=== PATIENT | female | born 1960 | race Caucasian/White ===

== ENCOUNTER → 2016-10-22 | Outpatient (CLI) | payer OTHER | LOC: CIMAGING 15:48 | PROVIDERS: ATTEND Internal Medicine Rheumatology | DX: M25.561 Pain in right knee (principal); M79.604 Pain in right leg | CPT/HCPCS: 73551-PO; 73562-PO ==

== ENCOUNTER → 2016-11-19 | Outpatient (CLI) | payer OTHER | LOC: CIMAGING 07:07 | PROVIDERS: ATTEND Internal Medicine | DX: M25.551 Pain in right hip (principal) | CPT/HCPCS: 73502-PO ==

== ENCOUNTER → 2016-11-28 | Outpatient (CLI) | payer OTHER | LOC: CIMAGING 11:43 | PROVIDERS: ATTEND Radiology Diagnostic Radiology | DX: I83.891 Varicose veins of right lower extremity with other complications (principal) | CPT/HCPCS: 93971-PO ==

== ENCOUNTER 2016-12-04 03:03 | Emergency (ER) | payer OTHER ==
[2016-12-04 03:09] VITALS: TEMP 98.4; O2SAT 96
--- NOTE | 2016-12-04 03:55 | CPEKG ---
Heart Rate: 77 RR Interval: 779 P-R Interval: 164 QRSD Interval: 86 QT Interval: 392 QTC Interval: 444 P [place]: 51 QRS [place]: 50 T Wave [place]: 43 EKG Severity - BORDERLINE ECG - EKG Impression: SINUS RHYTHM EKG Impression: BORDERLINE R WAVE PROGRESSION, ANTERIOR LEADS EKG Impression: BORDERLINE T ABNORMALITIES, ANTERIOR LEADS Electronically Signed By: Suleiman Souza 04-Dec-2016 06:24:23
--- NOTE | 2016-12-04 03:55 | CPEKG ---
Heart Rate: 77 RR Interval: 779 P-R Interval: 164 QRSD Interval: 86 QT Interval: 392 QTC Interval: 444 P [place]: 51 QRS [place]: 50 T Wave [place]: 43 EKG Severity - BORDERLINE ECG - EKG Impression: SINUS RHYTHM EKG Impression: BORDERLINE R WAVE PROGRESSION, ANTERIOR LEADS EKG Impression: BORDERLINE T ABNORMALITIES, ANTERIOR LEADS Electronically Signed By: Suleiman Souza 04-Dec-2016 06:24:23
[2016-12-04 03:56] LABS: PLATELET COUNT 189 10^3/uL (150-400)
--- NOTE | 2016-12-04 04:35 | EDPHY ---
H & P Stated Complaint: right arm numbness and right side of face burning Time Seen by Provider: 12/04/16 03:20 HPI/ROS: Chief Complaint: Right shoulder face and neck burning HPI: 56-year-old woman woke this morning with the sensation that her right shoulder neck and face were burning. At worst is about a 4/10. Had some pins and needles sensations earlier but does have gotten better. Patient has a history of some similar burning sensation in her right leg which she has worked up but it overhead that made her upper extremities. Denies numbness numbness or weakness. Has not been dropping anything. Denies any traumatic injuries. No vision or hearing changes. No ringing in her ears. No chest pain shortness of breath. No abdominal pain. No back pain. ROS: 10 point Review of Systems is negative except as noted in the HPI. PMH: Hypertension Social History: No smoking, no alcohol, no recreational drug use Family History: non-contributory Physical Exam: Gen: Awake, Alert, No Distress HEENT: Nose: no rhinorrhea Eyes: PERRLA, EOMI Mouth: Moist mucosa Neck: Supple, no JVD Chest: nontender, lungs clear to auscultation Heart: S1, S2 normal, no murmur Abd: Soft, non-tender, no guarding Back: no CVA tenderness, no midline tenderness Ext: no edema, non-tender Skin: no rash Neuro: CN II-XII intact, Sensation grossly intact, Strength 5/5 in bilateral upper and lower extremities , she is neurologically intact in the radial, median , and ulnar nerve distribution. Sensations intact in all cervical dermatomes bilaterally. She has equal sensation on her face, cheek, behind her ears, her ears, and her neck. 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 sinus rhythm with a rate of 77, normal axis, normal intervals , no acute ST or T-wave changes. Imaging Results: Chest x-ray is negative per my interpretation. Imaging: I viewed and interpreted images myself ED Course/Re-evaluation: 56-year-old woman with burning sensation in her right shoulder and right face and neck. She is completely neurologically intact. She has normal strength and completely normal sensation. She has no reproducible tenderness. ECG is negative. Chest x-ray is negative. Laboratory evaluations are normal. I suspect symptoms secondary to her having compressed a nerve with a peripheral nerve process. No deficits at this time. Will discharge with follow-up as an outpatient, return for worsening. No symptoms suggestive of PE, coronary artery disease, stroke, metabolic disorder, or acute vascular process. - Data Points Laboratory Results: Laboratory Results 12/04/16 03:50 12/04/16 03:50 12/04/16 12/04/16 03:50 03:50 WBC 7.43 10^3/uL 10^3/uL (3.80-9.50) RBC 4.67 10^6/uL 10^6/uL (4.18-5.33) Hgb 13.9 g/dL g/dL (12.6-16.3) Hct 39.2 % % (38.0-47.0) MCV 83.9 fL fL (81.5-99.8) MCH 29.8 pg pg (27.9-34.1) MCHC 35.5 g/dL g/dL (32.4-36.7) RDW 12.8 % % (11.5-15.2) Plt Count 189 10^3/uL 10^3/uL (150-400) MPV 10.0 fL fL (8.7-11.7) Neut % (Auto) 63.7 % % (39.3-74.2) Lymph % (Auto) 26.2 % % (15.0-45.0) [place] % (Auto) 6.3 % % (4.5-13.0) Eos % (Auto) 3.2 % % (0.6-7.6) Baso % (Auto) 0.5 % % (0.3-1.7) Nucleat RBC Rel Count 0.0 % % (0.0-0.2) Absolute Neuts (auto) 4.72 10^3/uL 10^3/uL (1.70-6.50) Absolute Lymphs (auto) 1.95 10^3/uL 10^3/uL (1.00-3.00) Absolute Monos (auto) 0.47 10^3/uL 10^3/uL (0.30-0.80) Absolute Eos (auto) 0.24 10^3/uL 10^3/uL (0.03-0.40) Absolute Basos (auto) 0.04 10^3/uL 10^3/uL (0.02-0.10) Absolute Nucleated RBC 0.00 10^3/uL 10^3/uL (0-0.01) Immature Gran % 0.1 % % (0.0-1.1) Immature Gran # 0.01 10^3/uL 10^3/uL (0.00-0.10) Sodium 141 mEq/L mEq/L (134-144) Potassium 3.6 mEq/L mEq/L (3.5-5.2) Chloride 104 mEq/L mEq/L (97-110) Carbon Dioxide 23 mEq/l mEq/l (22-31) Anion Gap 14 mEq/L mEq/L (8-16) BUN 20 mg/dL mg/dL (7-23) Creatinine 0.8 mg/dL mg/dL (0.6-1.0) Estimated GFR > 60 Glucose 112 mg/dL H mg/dL (70-100) Calcium 9.8 mg/dL mg/dL (8.5-10.4) Troponin I < 0.012 ng/mL ng/mL (0.000-0.034) Departure - Departure Disposition: Home, Routine, Self-Care Clinical Impression: Paresthesia Condition: Good Instructions: Paresthesia (ED) Additional Instructions: Follow up with your primary care physician in 2-3 days for further evaluation. Return to the emergency department for worsening discomfort, numbness, weakness , chest pain, shortness of breath, or any other concerns. Referrals: Valerie Chauhan MD [Primary Care Provider] - As per Instructions
[2016-12-04 04:51] VITALS: BP 132/96; PULSE 81; RESP 18
== END 2016-12-04 04:50 | disposition home or self-care (01) ==
DX: R20.2 Paresthesia of skin (principal); I10 Essential (primary) hypertension

== ENCOUNTER → 2016-12-27 | Outpatient (CLI) | payer OTHER ==
[~2016-12-27] MED LIST: IOPAMIDOL (ISOVUE 370) 100 ML BTL IV ONE
== END ==
LOC: FIMAGING 14:53
PROVIDERS: ATTEND Surgery
DX: I83.91 Asymptomatic varicose veins of right lower extremity (principal)
CPT/HCPCS: Q9967

== ENCOUNTER 2017-03-06 05:36 | Observation (INO) | payer OTHER ==
--- NOTE | 2017-03-05 17:44 | GHP ---
[f rep st] PREOP HISTORY AND PHYSICAL DATE OF ADMISSION: 03/06/2017 HISTORY OF PRESENT ILLNESS: The patient is a 56-year-old female who complains of mid right thigh valerie n, worse at rest and better with walking. Sometimes she wakes up in the morning and feels that her l egs are "." She has to lift her leg up with her arms and massage it before being able to move. She has seen multiple doctors and has had multiple tests, including workup for hip problems and hip r eplacement, for which she was told she does not need, as well as MRI of her spine which she says is n ormal. She has also seen Neurology and had muscle testing. Most recently, she comes to us with a CT angiogram that shows a popliteal vein varix, measuring up to 1.9 x 1.6 cm, about 10 cm above the lev el of the right knee joint. There is no evidence of arterial aneurysm. She has tried gabapentin, amitriptyline, and acupuncture with no relief. She is now here to discuss repair of this popliteal vein varix which may or may not be causing her problems. PAST MEDICAL HISTORY: Includes high blood pressure. PAST SURGICAL HISTORY: Denies. MEDICATIONS: Aspirin, vitamin B12, fish oil, flaxseed oil, glucosamine chondroitin. ALLERGIES: No known drug allergies. SOCIAL HISTORY: Denies tobacco use. 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 She is and has 2 children. FAMILY HISTORY: Includes coronary artery disease. REVIEW OF SYSTEMS: Ten-point review of systems is negative aside from that in the HPI. PHYSICAL EXAMINATION: GENERAL: An alert and oriented 56-year-old female in no acute distress. HEENT : Normocephalic, atraumatic. Mucous membranes moist. No scleral icterus. CARDIAC: Regular rate a nd rhythm. PULMONARY: No work of breathing. Clear to auscultation bilaterally. ABDOMEN: Soft, no ntender. EXTREMITIES: Warm, well perfused. No edema. Good range of motion. No knee pain or insta bility. PSYCH: Normal mood and affect. SKIN: Warm and dry. RESULTS: CT angiogram and hip x-ray images were personally reviewed. Also reviewed reports from lum bar and hip MRIs. PLAN: The patient's pain seems to be neuropathic. Her popliteal varix could be repaired, but it is uncertain that it is causing her symptoms. We also discussed the risk of clotting and potential need for prophylactic blood thinners for some time after surgery. Still, the patient would like to accep t the risks and have surgery for the varix. She has seen many doctors, had many tests, used many med icines, and would like to "start somewhere" and try something. We discussed risks and options again, including postoperative expectations and travel and activity limitations. She understands it may no t relieve her symptoms, and she may have clotting problems, bleeding problems, injuries to surroundin g nerves, chronic swelling, and even ischemia. Again, risks and options discussed, and she requests to proceed. /[id number]/MODL
[2017-03-06] MEDS ORDERED: ceFAZolin 2 GM/SWFI 2 GM/20 ML SYR IVP ONE (06:08)
[2017-03-06] MEDS ORDERED: LR 1,000 ML IV ONE (06:09)
[2017-03-06] MEDS ORDERED: LIDOCAINE 1% 2 ML INJ ID PRN (06:09)
[2017-03-06] MEDS ORDERED: MIDAZOLAM 2 MG/2 ML VIAL IVP ONE (07:04)
--- NOTE | 2017-03-06 07:07 | PDANEPAE ---
ANE History of Present Illness R leg pain s/f R popliteal vein anuerism ANE Past Medical History - Cardiovascular History Hx Hypertension: Yes Hx Arrhythmias: No Hx Chest Pain: No Hx Coronary Artery / Peripheral Vascular Disease: No Hx CHF / Valvular Disease: No Hx Palpitations: No Cardiovascular History Comment: pcp monitors bp meds - Pulmonary History Hx COPD: No Hx Asthma/Reactive Airway Disease: No Hx Recent Upper Respiratory Infection: No Hx Oxygen in Use at Home: No Hx Sleep Apnea: No Sleep Apnea Screening Result - Last Documented: Negative - Neurologic History Hx Cerebrovascular Accident: No Hx Seizures: No Hx Dementia: No - Endocrine History Hx Diabetes: No - Renal History Hx Renal Disorders: No - Liver History Hx Hepatic Disorders: No - Neurological & Psychiatric Hx Hx Neurological and Psychiatric Disorders: No - Cancer History Hx Cancer: No - Congenital Disorder History Hx Congenital Disorders: No - GI History Hx Gastrointestinal Disorders: No - Other Health History Other Health History: wears glasses - Chronic Pain History Chronic Pain: No - Surgical History Prior Surgeries: left hand surgery. cyst removed from right hand ANE Review of Systems Review of Systems: - Exercise capacity METS (RN): 4 METS ANE Patient History - Allergies Allergies/Adverse Reactions: No Known Allergies Allergy (Verified 03/06/17 06:16) - Home Medications Home medications: home medication list seen and reviewed (also ASA daily) Home Medications: Amitriptyline HCl [Elavil 50 mg (*)] 25 mg PO HS 04/27/13 [Last Taken 03/02/17] Herbals/Supplements -Info Only 1 ea PO DAILY 03/04/17 [Last Taken 03/04/17] Ibuprofen [Motrin (*)] 400 mg PO BID 03/04/17 [Last Taken 03/03/17] Lisinopril/Hctz 10/12.5 mg [Zestoretic/Prinzide 10/12.5MG (*)] 1 ea PO DAILY [Last Taken 03/05/17 08:00] [place]-3 Fatty Acids [Fish Oil 1000 mg (*)] 1,000 mg PO DAILY 03/04/17 [Last Taken 03/04/17] - NPO status NPO Status: no food or drink >8 hours NPO Since - Liquids (Date): 03/05/17 NPO Since - Liquids (Time): 21:00 NPO Since - Solids (Date): 03/05/17 NPO Since - Solids (Time): 18:30 - Anes Hx Anes Hx: no prior problems - Smoking Hx Smoking Status: Never smoked - Alcohol Use Alcohol Use: Rarely - Family Anes Hx Family Anes Hx: none Family Hx Anesthesia Complications: none ANE Labs/Vital Signs - Labs - CBC WBC: reivewed and okay - Vital Signs Blood Pressure: 125/81 Heart Rate: 96 Respiratory Rate: 16 O2 Sat (%): 96 Height: 154.94 cm Weight: 58.513 kg ANE Physical Exam - Airway Neck exam: FROM - Pulmonary Pulmonary: no respiratory distress - Cardiovascular Cardiovascular: regular rate and rhythym - ASA Status ASA Status: II ANE Anesthesia Plan Anesthesia Plan: general endotracheal anesthesia, GA w LMA (LMA vs ETT based on postion)
[2017-03-06] MEDS ORDERED: IOTHALAMATE MEG (CONRAY) 50 ML VIAL IV ONE (07:25)
[2017-03-06] MEDS ORDERED: PAPAVERINE HCL 60 MG/2 ML SDV ONE (07:25)
[2017-03-06] MEDS ORDERED: BUPIVACAINE 0.5% 30 ML SDV ONE (07:25)
[2017-03-06] MEDS ORDERED: PROPOFOL/EMULSION 500 MG/50 ML BOTTLE IV ONE (07:26)
[2017-03-06] MEDS ORDERED: fentaNYL 100 MCG/2 ML INJ ONE (07:26)
[2017-03-06] MEDS ORDERED: DEXAMETHASONE 4 MG/ML VIAL ONE (07:27)
[2017-03-06] MEDS ORDERED: LIDOCAINE 2% 100 MG/5 ML SYR ONE (07:27)
[2017-03-06] MEDS ORDERED: ONDANSETRON 4 MG/2 ML VIAL ONE (07:27)
--- NOTE | 2017-03-06 07:35 | PDHPUP ---
History & Physical Update H&P update statement: This history and physical update is based on an assessment of the patient which was completed after admission or registration (within 24 hours), but prior to the surgery/procedure.
[2017-03-06] MEDS ORDERED: PHENYLEPHRINE HCL 100 MCG/ML SYR ONE (07:42)
[2017-03-06] MEDS ORDERED: HEPARIN 10,000 UNIT/10 ML MDV (1,000 UNIT/ML) ONE (07:56)
[2017-03-06] MEDS ORDERED: THROMBIN (BOVINE) 5,000 UNIT VIAL TP ONE (08:32)
[2017-03-06] MEDS ORDERED: HYDROmorphONE/DILAUDID 1 MG/ML INJ IVP PRN (08:47)
[2017-03-06] MEDS ORDERED: fentaNYL 100 MCG/2 ML INJ IVP PRN (08:47)
[2017-03-06] MEDS ORDERED: DEXAMETHASONE 4 MG/ML VIAL IVP PRN (08:47)
[2017-03-06] MEDS ORDERED: LR 500 ML IV PRN (08:47)
[2017-03-06] MEDS ORDERED: LABETALOL HCL 5 MG/ML 20 ML MDV IVP PRN (08:47)
[2017-03-06] MEDS ORDERED: NALOXONE HCL 0.4 MG/ML INJ IVP PRN (08:47)
[2017-03-06] MEDS ORDERED: PROMETHAZINE HCL 25 MG/ML INJ IVP PRN (08:47)
[2017-03-06] MEDS ORDERED: HYDROCODONE/APAP 5/325 TAB PO PRN (08:47)
[2017-03-06] MEDS ORDERED: MEPERIDINE 25 MG/ML SYR IVP PRN (08:47)
[2017-03-06] MEDS ORDERED: ALBUTEROL 3 ML DEYVIAL IH PRN (08:47)
[2017-03-06] MEDS ORDERED: ONDANSETRON 4 MG/2 ML VIAL IVP PRN (08:47)
[2017-03-06] MEDS ORDERED: PHENYLEPHRINE HCL 100 MCG/ML SYR IVP PRN (08:47)
[2017-03-06] MEDS ORDERED: OXYCODONE/APAP 5/325 TAB PO PRN (08:47)
[2017-03-06] MEDS ORDERED: METOCLOPRAMIDE 10 MG/2 ML VIAL IVP PRN (08:47)
[2017-03-06] MEDS ORDERED: ACETAMINOPHEN 500 MG TAB PO PRN (08:47)
--- NOTE | 2017-03-06 09:58 | POSTOPPROG ---
Post Op Note Date of Operation: 03/06/17 Surgeon: Cj Bella Manager Agency: [facility] Anesthesiologist: [place] Anesthesia: GET(General Endotracheal) Pre-op Diagnosis: rt femoral venous aneurysm Post-op Diagnosis: same Indication: pain Procedure: resection rt femoral varix Findings: 2.5 cm varix Inf/Abcess present in the surg proc area at time of surgery?: No Depth: Organ Space EBL: Minimal Complications: 0 Specimen(s): none
--- NOTE | 2017-03-06 10:44 | POSTANESTH ---
Post Anesthetic Evaluation Cardiovascular Status: Normal, Stable Respiratory Status: Normal, Stable Level of Consciousness/Mental Status: Can Participate in Eval Pain Control: Adequate, Prn Tx Ordered Nausea/Vomiting Control: Adequate, Prn Tx Ordered Complications Possibly Related to Anesthesia: None Noted
[2017-03-06 13:25] VITALS: RESP 18; TEMP 97.6
[2017-03-06 15:58] VITALS: BP 157/95; PULSE 100; O2SAT 96
--- NOTE | 2017-03-07 17:57 | ASDISCHSUM ---
Discharge Information Plan Status:Home with No Needs Medically Cleared to Leave: Discharge Date:03/06/2017 07:21 PM CM D/C Disposition:Home, Routine, Self-Care ADT D/C Disposition:Home, Routine, Self-Care Projected Discharge Date:03/06/2017 07:21 PM Transportation at D/C: Discharge Delay Reason: Follow-Up Date:03/06/2017 07:21 PM Discharge Slot: Final Diagnosis: Placement Information Patient Contact Information Contact Name:SANYA Relationship: Address:[address] Work Phone: City:[facility] Phone: [facility]/Zip Code:[place] [address] Email: Financial Information Financial Class:HMO and PPO Plans Primary Plan Desc:REJI TAN PPO Primary Plan Number:[id number] Secondary Plan Desc: Secondary Plan Number: Assessment Information Intervention Information
--- NOTE | 2017-03-11 10:58 | GOP ---
[f rep st] OPERATIVE REPORT DATE OF OPERATION: 03/06/5017 SURGEON: Cj Bella MD BIOMEDICAL SPECIALIST: Bianka Clements NP PREOPERATIVE DIAGNOSIS: Right superficial femoral vein varix. POSTOPERATIVE DIAGNOSIS: Right superficial femoral vein varix. PROCEDURE PERFORMED: Exploration and resection of a superficial femoral vein varix. FINDINGS: INDICATIONS: The patient is a 56-year-old female with recurrent leg pain with a negative workup exce pt for the findings of this abnormally dilated vein in the popliteal space. Risks and options were f ully discussed, including the risk of DVT, the risk of failure to resolve her symptoms and other prob lems, and she wishes to proceed. DESCRIPTION OF PROCEDURE: The patient was taken to the operating room where she received satisfactor y general endotracheal anesthesia. She was placed in the supine position with the right leg draped f pantera. She was prepped and draped in the usual sterile fashion. A longitudinal incision was made ov er the adductor canal. Dissection extended down through the subcutaneous tissue and through the fasc ia of the thigh. The adductor canal was entered, and the superficial femoral vein was readily identi fied and dissected free. The large varix was easily identifiable. Control of the vein was obtained above and below this area with vessel loops. The varix appeared to be asymmetric extending off to on e side. Particularly, there were no areas to suggest a malignancy or tumor, and the vein itself was quite smooth, soft, and flat. A vascular clamp was then placed tangentially along the course of the superficial femoral vein excluding the varix but maintaining a good normal in-line flow of the vein. This area was then suture ligated with a running 4-0 Prolene suture to eliminate the abnormal varix in the vein. Hemostasis was assured and maintained good blood flow in the vessel. The patient had b een systemically heparinized for the resection and ligation. Heparin was not reversed. Hemostasis w as assured. Some topical thrombin was placed in the cavity. The wound was then closed in layers usi ng 2-0 Vicryl for the fascia with 3-0 Vicryl for the subcu, 4-0 Monocryl subcuticular stitch for the skin. All layers were infiltrated with 0.5% Marcaine. She tolerated the procedure well and was take n to the recovery room in good condition. Copy requested to: Valerie Chauhan /[id number]/MODL
== END 2017-03-06 19:21 | disposition home or self-care (01) ==
LOC: F3E 05:36 → F2W 05:36 → F3E 13:18
PROVIDERS: ADMIT Surgery; ATTEND Surgery
PROC: 04QM0ZZ Repair Right Popliteal Artery, Open Approach (ICD-10-PCS; principal; 2017-03-06 07:15)
DX: I83.811 Varicose veins of right lower extremity with pain (principal); M24.151 Other articular cartilage disorders, right hip
CPT/HCPCS: 35226; G0378; J0690; J1100; J1644; J2001; J2250; J2370; J2405; J2440; J2704; J3010; Q9961

== ENCOUNTER → 2017-03-14 | Outpatient (CLI) | payer OTHER | LOC: FIMAGING 15:09 | PROVIDERS: ATTEND Surgery | DX: M79.661 Pain in right lower leg (principal) ==